=== PATIENT | male | born 1980 | race Caucasian/White ===

== ENCOUNTER → 2018-09-27 09:05 | Outpatient (CLI) | payer OTHER, SELFPAY ==
--- NOTE | 2018-09-27 10:01 | DI.CT.S_ITS ---
PROCEDURE: CT ABDOMEN PELVIS W CON INDICATIONS: umbilical drainage and pressure TECHNIQUE: After the administration of oral and intravenous contrast, 5 mm thick sections acquired from the diaphragms to the symphysis. 5 mm thick coronal and sagittal reformats were performed. For radiation dose reduction, the following was used: automated exposure control, adjustment of mA and/or kV according to patient size. COMPARISON: None. FINDINGS: Image quality: Excellent. ABDOMEN: Lung bases: Lung bases are clear. Heart size is normal. Solid organs: Multiple sub-5 mm hepatic hypodense foci, technically too small to characterize and indeterminate. Gallbladder negative. Biliary system is non-dilated. Pancreas enhances normally. Spleen is normal in size and enhancement. No adrenal nodules. Kidneys are normal in size and enhancement, without hydronephrosis. Peritoneum and bowel: Stomach, small bowel, and colon loops are normal in caliber and wall thickness. No free fluid or air. Nodes and vessels: No retroperitoneal or mesenteric adenopathy. Aorta and inferior vena cava are normal in caliber. Miscellaneous: No ventral hernias. PELVIS: Genitourinary: The dome of the bladder, there is focal soft tissue attenuation, although subcentimeter in size. There is a soft tissue tract partially extending towards the umbilicus, although quite subtle. No focal fluid collection is seen. Miscellaneous: No inguinal hernias or adenopathy. Bones: No suspicious bony lesions. No vertebral body compression fractures. IMPRESSION: Focal soft tissue attenuation at the dome of the bladder, with linear extension towards the umbilicus. This raises the possibility of a urachal diverticulum, or collapsed patent urachus. Dictated by: Hunter Sanders M.D. on 09/27/2018 at 12:11 Approved by: Hunter Sanders M.D. on 09/27/2018 at 12:20
== END ==
PROVIDERS: Family Provider Family Medicine; PCP Family Medicine; Visit Provider Family Medicine
DX: Q64.4 Malformation of urachus (principal); R19.8 Other specified symptoms and signs involving the digestive system and abdomen
CPT/HCPCS: 74177